=== PATIENT | female | born 1975 | race Caucasian/White ===

== ENCOUNTER 2016-11-14 11:38 | Emergency (ER) | payer OTHER, MEDICAID ==
--- NOTE | 2016-11-14 15:10 | EDPHY ---
H & P Stated Complaint: lump on left breast non painful-noticed by retirement staff Time Seen by Provider: 11/14/16 14:52 HPI/ROS: CHIEF COMPLAINT: Left breast lump HISTORY OF PRESENT ILLNESS: 41-year-old female with developmental delay who lives in a retirement presents to the emergency department with her retirement staff who reports they noticed a lump in her left breast yesterday. Patient reports this is nontender, she denies any history of this. No nipple discharge. No fevers or chills. Unknown family history of breast cancer, no personal history of breast cancer. Patient denies chest pain, shortness of breath, no recent cough or cold, no other complaints. REVIEW OF SYSTEMS: A comprehensive 10 point review of systems is otherwise negative aside from elements mentioned in the history of present illness. Source: Patient Exam Limitations: Physical impairment - Personal History LMP (Females 10-55): Unknown Current Tetanus/Diphtheria Vaccine: Unsure Current Tetanus Diphtheria and Acellular Pertussis (TDAP): Unsure - Medical/Surgical History Hx Asthma: No Hx Chronic Respiratory Disease: No Hx Diabetes: No Hx Cardiac Disease: No Hx Renal Disease: No Hx Cirrhosis: No Hx Alcoholism: No Hx HIV/AIDS: No Hx Splenectomy or Spleen Trauma: No Other PMH: dev delay. seizure disorder. hyperlipidemia - Social History Smoking Status: Never smoked - Physical Exam Exam: Physical Exam Gen: Alert, NAD HEENT: PERRL, moist mucous membranes NECK: no meningismus CV: regular rate and regular rhythm PULM: CTAB, no wheezes ABDOMEN: Obese, soft, non tender to palpation, BS present NEURO: No facial asymmetry, follows commands, moves all extremities EXTREMITIES: normal appearing SKIN: Left breast with deep 2 cm per 1 cm firm mobile mass in the 1 o'clock position 1 cm from areola. No nipple discharge, no redness, swelling or tenderness Constitutional: Initial Vital Signs Temperature (C) 36.5 C 11/14/16 11:43 Heart Rate 81 11/14/16 11:43 Respiratory Rate 16 11/14/16 11:43 Blood Pressure 115/63 11/14/16 11:43 O2 Sat (%) 98 11/14/16 11:43 O2 Delivery Mode Room Air Allergies/Adverse Reactions: No Known Allergies Allergy (Unverified 11/14/16 11:42) Home Medications: Medication Instructions Recorded Susi 11/14/16 Lexapro 11/14/16 Lipitor 11/14/16 Medical Decision Making ED Course/Re-evaluation: 41-year-old female presents with a left breast mass that was noticed yesterday by her retirement staff. Patient has no evidence of abscess or infection, this mass is nontender, no skin dimpling or nipple drainage, no fevers, chills or other complaints. Patient is discharged with plans to follow up with her PCP for a mammogram. I discussed the importance of follow-up. They agree with this plan. Differential Diagnosis: Diagnosis considered but not limited to cyst, malignancy, or abscess, normal breast tissue Departure - Departure Disposition: Home, Routine, Self-Care Clinical Impression: Left breast mass Condition: Good Instructions: Breast Mass (ED) Additional Instructions: Follow-up with your primary care doctor on Wednesday for re-evaluation and order for a mammogram. Return to the emergency department sooner for any pain, fevers , any other questions or concerns. Referrals: Natasha Mcmahon MD [Primary Care Provider] - As per Instructions
[2016-11-14 15:37] VITALS: BP 118/68; PULSE 69; RESP 18; TEMP 97.5; O2SAT 96
== END 2016-11-14 15:38 | disposition home or self-care (01) ==
DX: N63 Unspecified lump in breast (principal)

== ENCOUNTER → 2016-12-02 | Outpatient (CLI) | payer OTHER, MEDICAID ==
--- NOTE | 2016-12-02 09:59 | MA ---
Diagnostic Digital Mammogram With iCAD Analysis Clinical Indications: Patient reports a palpable area in the anterior left breast. Technique: Standard cephalocaudal projections are obtained. Digital breast tomosynthesis was performe d in the MLO projection with reconstruction at 1.0 mm slice thickness and composite MLO views reconst ructed. A skin marker is placed on the palpable region in the anterior left breast. This examination is processed by the iCAD computer-aided detection system. Comparison: Baseline study; no previous mammograms have been performed. Breast Density: Type B; Scattered fibroglandular densities. Findings: CAD was reviewed. No masses, suspicious calcifications, or secondary signs of malignancy ar e seen. Specifically no abnormality is seen in the anterior left breast corresponding to the palpable region. There is normal-appearing glandular tissue mammographically. Impression: Palpable area in the left breast requires further evaluation, BI-RADS 0. Recommendation: Targeted left breast ultrasound which will be subsequently performed today. A verbal report was given to the patient. [facility] will send a result letter to the patient.
--- NOTE | 2016-12-02 10:27 | US ---
Left Breast Ultrasound History: Evaluate palpable lump. Technique: Longitudinal and transverse images were obtained utilizing a 15 MHz transducer. Color Dop pler evaluation is employed for assessment of vascularity. The study is interpreted in conjunction wi th diagnostic mammography performed earlier today. Findings: The patient identifies a palpable area in the anterior breast at the 3 o'clock position. So nographic interrogation demonstrates a small simple cyst measuring 6 x 3 mm. A few other small scatte red cysts are noted additionally. No solid lesion is seen. Impression: Benign findings when considering mammographic and sonographic assessments, BI-RADS 2. Recommendation: Resume routine mammographic screening in one year as long as physical examination is benign. Findings were reviewed with the patient and her caregiver. [facility] will send a result letter to the patient.
== END ==
LOC: FIMAGING 09:05
PROVIDERS: ATTEND Family Medicine
DX: N60.02 Solitary cyst of left breast (principal)
CPT/HCPCS: 76641; G0204; G0279

== ENCOUNTER 2017-11-28 19:16 | Emergency (ER) | payer OTHER, MEDICAID ==
--- NOTE | 2017-11-28 19:48 | EDPHY ---
HPI/HX/ROS/PE/MDM Narrative: CHIEF COMPLAINT: Right foot pain and swelling HISTORY OF PRESENT ILLNESS: The patient is a 42 y/o female with a history of developmental delay and a seizure disorder complaining of right foot pain and swelling since this afternoon after waking up from her nap. Last night she had mild right foot pain , but does not remember injuring it. She has been unable to walk due to the pain. History in review of systems is slightly limited secondary to the patient's the prior medical history. She and her caregiver deny other associated symptoms. No fever documented. Patient denies any pain in her chest, abdomen, back, or left lower extremity. REVIEW OF SYSTEMS: Aside from elements discussed in the HPI, a 10-point review of systems was reviewed and is negative per the patient and caregiver. PAST MEDICAL HISTORY: Developmentally delayed, seizure disorder, hyperlipidemia SOCIAL HISTORY: Caregiver at bedside, lives in [place], [facility] [address] VITAL SIGNS: Reviewed by me GENERAL: Well-developed, well-nourished, resting comfortably in no respiratory distress. HEENT: Benign exam. LUNGS: Clear to auscultation bilaterally, no wheezes, rhonchi or rales. CARDIAC: Regular rate and rhythm, no rubs, murmurs or gallops. ABDOMEN: Soft, nontender, nondistended, bowel sounds normal. BACK: No CVA tenderness. EXTREMITIES: Right lower extremity: Swelling is localized over the right lateral malleoli. It is not warm but is slightly erythematous. It is not tense. Does not appear to be particularly tender. No ecchymosis. No laceration. No abrasions. Range of motion is normal throughout. Portions of this note were transcribed by a medical record clerk. I personally performed a history, physical exam, medical decision making, and confirmed accuracy of information the transcribed note. ED Course: The patient is a 42 y/o female with a history of a seizure disorder presenting with right foot swelling and pain. On exam she has soft, minimally tender swelling over the right lateral malleoli, as well as mild erythema. 2017: Patient's x-ray reveals no osseous injury. Her pain and swelling could be due to sprain vs. early cellulitis 2030: Reassessed patient and discussed imaging findings. She will be placed in a boot until follow up with her PCP. I have prescribed her Keflex for potential cellulitis. Return precautions provided; patient and her caregiver are comfortable with this plan. MDM: Differential diagnoses for the patient's symptom complex was considered including but not limited to sprain, contusion, cellulitis, fracture. - Data Points Imaging Results: Impression: Negative. No subcutaneous gas, foreign body, or evidence of osteomyelitis. Dictated By: Yoshi Rivas MD Imaging: I viewed and interpreted images myself Medications Given: Discontinued Medications Cephalexin HCl (Keflex) 500 mg PO EDNOW ONE PRN Reason: Protocol Stop: 11/28/17 20:19 Last Admin: 11/28/17 20:31 Dose: 500 mg General Time Seen by Provider: 11/28/17 19:39 Initial Vital Signs: Initial Vital Signs Temperature (C) 36.7 C 11/28/17 19:24 Heart Rate 81 11/28/17 19:24 Respiratory Rate 16 11/28/17 19:24 Blood Pressure 116/71 11/28/17 19:24 O2 Sat (%) 99 11/28/17 19:24 O2 Delivery Mode Room Air Allergies/Adverse Reactions: No Known Allergies Allergy (Unverified 11/14/16 11:42) Home Medications: Medication Instructions Recorded Dilantin 11/14/16 Lexapro 11/14/16 Lipitor 11/14/16 Cephalexin [Keflex (RX)] 500 mg PO QID 7 Days cap 11/28/17 Departure - Departure Disposition: Home, Routine, Self-Care Clinical Impression: Right ankle sprain Qualifiers: Encounter type: initial encounter Involved ligament of ankle: other ligament Qualified Code(s): S93.491A - Sprain of other ligament of right ankle, initial encounter Cellulitis Qualifiers: Site of cellulitis: extremity Site of cellulitis of extremity: lower extremity Laterality: right Qualified Code(s): L03.115 - Cellulitis of right lower limb Condition: Good Instructions: Ankle Sprain (ED), Cellulitis (ED) Additional Instructions: Mainstay of therapy is rest, ice, immobilization, elevation, and nonsteroidal anti-inflammatories for pain and to decrease swelling. Apply ice for 20-30 minutes every 2-3 hours for the next 48 hours. Take Keflex as prescribed. Keep your boot on until you see your primary care provider. I recommend Ibuprofen (Motrin,Advil) or Naproxen Sodium (Aleve) for pain and anti-inflammatory effects. You may take either one, but do not take both. Your dose is: Ibuprofen 600mg every 6-8 hours with food. OR Naproxen Sodium (Aleve) 220mg every 12 hours. Followup with your primary care provider in the next week. Return to the emergency department for worsening pain, swelling, numbness, weakness or other concerns. Wear Referrals: Arnol Shaw MD [[facility] Primary Care Provider] - As per Instructions [facility],. [Clinic] - As per Instructions Prescriptions: Cephalexin [Keflex (RX)] 500 mg PO QID 7 Days cap Report Scribed for: Nadira Kinney Report Scribed by: Bree Ceron Date of Report: 11/28/17 Time of Report: 19:57
[2017-11-28] MEDS ORDERED: CEPHALEXIN 500 MG CAP PO ONE (20:18)
[2017-11-28 20:47] VITALS: BP 122/89; PULSE 82; RESP 18; TEMP 98.6; O2SAT 98
== END 2017-11-28 20:46 | disposition home or self-care (01) ==
DX: S93.491A Sprain of other ligament of right ankle, initial encounter (principal); L03.115 Cellulitis of right lower limb; X58.XXXA Exposure to other specified factors, initial encounter; Y99.8 Other external cause status; Y93.01 Activity, walking, marching and hiking

== ENCOUNTER → 2018-04-28 | Outpatient (CLI) | payer OTHER, MEDICAID | LOC: FIMAGING 15:01 | PROVIDERS: ATTEND Family Medicine | DX: Z12.31 Encounter for screening mammogram for malignant neoplasm of breast (principal) ==

== ENCOUNTER 2019-04-02 21:33 | Emergency (ER) | payer OTHER, MEDICAID | END 2019-04-02 23:11 | disposition home or self-care (01) ==